=== PATIENT | male | born 1950 | race Caucasian/White ===

== ENCOUNTER 2019-10-09 20:46 | Emergency (ER) | payer MEDICARE ==
[2019-10-09] MEDS ORDERED: Ketorolac 30 MG/ML SDV IM ONE (20:51)
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
--- NOTE | 2019-10-10 10:02 | CR ---
Ribs left [place] CLNICAL HISTORY: Fall FINDINGS: Study is limited due to patient body habitus. There is some minimal cortical deformity seen in the posterior lateral left 11th rib . No destructive changes are seen. There is no focal pleural thickening or obvious effusion. IMPRESSION: Deformity of left the 11th rib posterior laterally suggests a nondisplaced fracture.
== END 2019-10-09 22:25 | disposition home or self-care (01) ==
LOC: JP.ED 20:46
DX: S22.32XA Fracture of one rib, left side, initial encounter for closed fracture (principal); F10.129 Alcohol abuse with intoxication, unspecified; W19.XXXA Unspecified fall, initial encounter
CPT/HCPCS: 36415; 71101-26; 71101-LT; 80307; 99285-25